=== PATIENT | female | born 1960 | race Caucasian/White ===

== ENCOUNTER → 2020-05-04 07:31 | Outpatient (CLI) | payer BC, SELFPAY ==
--- NOTE | ~2020-05-04 | MR_ITS ---
EXAMINATION: MR cervical spine wo con EXAM DATE: 05/04/2020 08:34 INDICATION: Paresthesia of the skin. TECHNIQUE: Multi-sequential, multiplanar MR images of the cervical spine were obtained without contra st. Axial T2, axial T2 MERGE sequence. Sagittal T1, T2, T2 fat saturation images also obtained. Th ere is no prior study for comparison. FINDINGS: There is moderate to severe loss of the disc height at C4-5 with only mild bony productive changes, moderate loss at the 2 levels below. There is 2 mm retrolisthesis of C4 on C5. The spinal c ord signal intensity and intrinsic morphology is normal. Cervicomedullary junction is normal in appea irma. There are no suspicious marrow signal abnormalities. Paraspinal soft tissue is unremarkable. Level by level evaluation: C2-C3: Disc does not extend beyond the endplate margin. Uncovertebral joint arthropathy: Mild right. Facet joint arthropathy: Mild right. Neural foraminal stenosis: Mild right. Central canal stenosis: No stenosis. C3-C4: There is a minimal diffuse disc bulge. Uncovertebral joint arthropathy: Mild to moderate left, mild right. Facet joint arthropathy: Moderate to severe left, mild to moderate right. Neural foraminal stenosis: Moderate left, mild to moderate right. Central canal stenosis: No stenosis. C4-C5: There is a mild diffuse disc bulge. Uncovertebral joint arthropathy: Moderate bilateral. Facet joint arthropathy: Mild to moderate bilateral. Neural foraminal stenosis: Severe left, moderate to severe right. Central canal stenosis: Mild. C5-C6: There is a mild diffuse disc bulge. Uncovertebral joint arthropathy: Moderate right, mild to moderate left. Facet joint arthropathy: Mild to moderate left, mild right. Neural foraminal stenosis: Moderate to severe bilateral, right greater than left. Central canal stenosis: Mild. C6-C7: There is a mild diffuse disc bulge. Uncovertebral joint arthropathy: Moderate to severe right, moderate left. Facet joint arthropathy: Mild bilateral. Neural foraminal stenosis: Moderate right, mild to moderate left. Central canal stenosis: Mild. C7-T1: Disc does not extend beyond the endplate margin. Uncovertebral joint arthropathy: Moderate left, mild to moderate right. Facet joint arthropathy: None. Neural foraminal stenosis: No stenosis. Central canal stenosis: No stenosis. IMPRESSION: 1. Significant mid cervical neural foraminal stenosis. Reviewed, dictated and finalized at location A.
== END ==
PROVIDERS: PCP Family Medicine; Visit Provider Family Medicine
DX: M47.813 Spondylosis without myelopathy or radiculopathy, cervicothoracic region (principal); M48.03 Spinal stenosis, cervicothoracic region; R20.2 Paresthesia of skin; N32.81 Overactive bladder
CPT/HCPCS: 72141

== ENCOUNTER → 2020-05-10 15:37 | Outpatient (CLI) | payer BC, SELFPAY ==
--- NOTE | ~2020-05-10 | US_ITS ---
US pelvic limited 05/10/2020 15:55 Indication: Overactive bladder. Post void residual. Urgency and frequency. Procedure: High-resolution pelvic ultrasound Comparison: No prior studies for comparison. Findings: Bladder wall is normal without focal bladder wall thickening or mass. Prevoid volume is 391 cc. Postvoid volume is 72 cc. Impression: 1: Post void residual measures 72 cc. Reviewed, dictated and finalized at location B. Impression: 1: Post void residual measures 72 cc.
== END ==
PROVIDERS: Visit Provider Family Medicine
DX: N32.81 Overactive bladder (principal)
CPT/HCPCS: 76857

== ENCOUNTER → 2020-05-28 08:35 | Outpatient (CLI) | payer BC, SELFPAY ==
--- NOTE | ~2020-05-28 | XR_ITS ---
EXAMINATION: XR chest 2V DATE: 05/28/2020 09:28 INDICATION: Shortness of breath TECHNIQUE: PA and lateral views of the chest are obtained. COMPARISON: None available FINDINGS: The lungs are free of acute opacities. There is no pleural effusion or pneumothorax. The ca rdiomediastinal silhouette is normal. The visualized bones and soft tissues are unremarkable. Bilater al breast implants are noted. IMPRESSION: 1. No acute cardiopulmonary abnormality. Reviewed, dictated and finalized at location B.
--- NOTE | ~2020-05-28 | MR_ITS ---
EXAMINATION: MR lumbar spine wo con DATE: 05/28/2020 09:11 INDICATION: Low back pain. TECHNIQUE: Magnetic resonance imaging (MRI) of the lumbar spine was performed without intravenous con trast. Sequences included sagittal T2-weighted FSE, sagittal T2-weighted FS FSE, sagittal T1-weighted FSE, and axial T2-weighted FSE. COMPARISON: None FINDINGS: There is 6 degrees levocurvature of lumbar spine. There is 3 mm anterolisthesis of L4 on L5 . There is mild chronic height loss of L5 vertebral body. There is mildly decreased disc height at L1 -L2 and L5-S1 with endplate remodeling. The distal spinal cord signal intensity is normal. The conus medullaris is at L1. The following disc levels are specifically discussed: L1-L2: There is a small left central extrusion with 10 mm superior extension. There is mild bilateral facet joint osteoarthritis. There is no neural foraminal stenosis. There is mild central canal steno sis. L2-L3: The disc does not extend beyond the endplate margin. There is no facet joint osteoarthritis. T here is no neural foraminal stenosis. There is no central canal stenosis. L3-L4: There is a left foraminal protrusion. There is moderate bilateral facet joint osteoarthritis. There is mild left neural foraminal stenosis. There is no central canal stenosis. L4-L5: The disc is bulging and has an annular fissure. There is severe bilateral facet joint osteoart hritis. There is mild bilateral neural foraminal stenosis. There is mild central canal stenosis. L5-S1: The disc is bulging. There is mild right and severe left facet joint osteoarthritis. There is mild left neural foraminal stenosis. There is mild central canal stenosis. IMPRESSION: 1. Mild lumbar spondylosis. Reviewed, dictated and finalized at location A. IMPRESSION: 1. Mild lumbar spondylosis.
== END ==
PROVIDERS: PCP Family Medicine; Visit Provider Family Medicine
DX: R06.09 Other forms of dyspnea (principal); M47.896 Other spondylosis, lumbar region
CPT/HCPCS: 71046; 72148

== ENCOUNTER → 2020-06-28 15:45 | Outpatient (CLI) | payer BC, SELFPAY ==
--- NOTE | ~2020-06-28 | MM_ITS ---
EXAMINATION: MM scrn juan carlos implant BI w serg HISTORY: Screening mammogram TECHNIQUE: Craniocaudal and mediolateral oblique 3-D tomosynthesis images with implant displacement a nd synthetic 2-D images were generated. Craniocaudal and mediolateral oblique views of the breasts wi thout implant displacement were obtained using full field digital mammography. CAD analysis was submi tted and interpreted. COMPARISON: No prior mammogram is available for comparison at this institution. BREAST PARENCHYMAL COMPOSITION: There are scattered areas of fibroglandular density. FINDINGS: There are bilateral subpectoral silicone implants. There is no evidence of suspicious mass, calcification, or architectural distortion to suggest malignancy in either breast. There has been no suspicious interval change. IMPRESSION: 1. No mammographic evidence of malignancy. 2. Recommend routine screening mammography in one year. BI-RADS Category 1: Negative Reviewed, dictated and finalized at location A.
== END ==
PROVIDERS: PCP Family Medicine; Visit Provider Family Medicine
DX: Z12.31 Encounter for screening mammogram for malignant neoplasm of breast (principal)
CPT/HCPCS: 77063; 77067

== ENCOUNTER → 2020-08-17 01:55 | Outpatient (CLI) | payer OTHER, SELFPAY ==
[2020-08-17 16:16] LABS: SARS-CoV-2 RNA PCR Negative
== END ==
PROVIDERS: PCP Family Medicine; Visit Provider Surgery Plastic and Reconstructive Surgery
DX: Z01.812 Encounter for preprocedural laboratory examination (principal); Z20.822 Contact with and (suspected) exposure to COVID-19
CPT/HCPCS: C9803; U0003; U0005

== ENCOUNTER → 2020-08-27 10:33 | Outpatient (CLI) | payer BC, SELFPAY ==
--- NOTE | ~2020-08-27 | MR_ITS ---
EXAMINATION: MR brain/brain stem wo/w con DATE: 08/27/2020 11:46 INDICATION: Left-sided facial numbness. Left-sided tinnitus. TECHNIQUE: Magnetic resonance imaging (MRI) of the brain and brainstem was performed without and with 13 mL MultiHance intravenous contrast. Sequences included sagittal and axial T1-weighted FSE, axial diffusion-weighted FS EPI, axial T2*-weighted GRE, axial T2-weighted FLAIR Propeller, and axial T2-we ighted Propeller. Postcontrast sequences included axial and coronal T1-weighted FSE. Apparent diffusi on coefficient (ADC) maps were created. COMPARISON: None. FINDINGS: There are scattered areas of nonspecific increased T2-weighted signal intensity in the cere bral white matter, which is within normal limits for the patient's age. There is no intracranial hemo rrhage, acute infarction, or abnormal intracranial mass lesion. The ventricles are normal in size. Th e mastoid air cells are normal. The paranasal sinuses are clear. The orbits are normal. IMPRESSION: 1. Normal aging brain. Reviewed, dictated and finalized at location A. IMPRESSION: 1. Normal aging brain.
[2020-08-27 11:29] LABS: Estimated Glomerular Filt Rate > 60
== END ==
PROVIDERS: PCP Family Medicine; Visit Provider Family Medicine
DX: R20.2 Paresthesia of skin (principal); G50.9 Disorder of trigeminal nerve, unspecified
CPT/HCPCS: 70553; A9577

== ENCOUNTER 2020-09-10 08:19 | Day surgery (SDC) | payer OTHER, SELFPAY ==
[2020-08-04 10:07] VITALS: BMI 23.3
--- NOTE | 2020-08-19 09:26 | WPDANESEPPF ---
Anes - Initial Pre Proc Eval Procedure: Operation Date: 08/20/20 10:30 Proposed Procedures p Bilateral Breast Implant Removal with Capsulectomy - Shree Figueredo MD Date/Time: 08/19/20 09:26 Surgeon: Shree Figueredo MD Pre Op Diagnosis: Breast Implant Rupture Patient Data Age: 59 Gender: F Height: 1.68 m Weight: 65.5 kg Allergies Allergy/AdvReac Type Severity Reaction Status Date / Time morphine Allergy Intermediate Rash Verified 08/04/20 09:42 Home Medications Medication Instructions Recorded Confirmed Type alprazolam [Xanax] 0.25 mg PO PRN PRN 07/05/20 08/04/20 History cholecalciferol (vitamin D3) 10 10 mcg PO DAILY 07/05/20 08/04/20 History mcg (400 unit) capsule meloxicam 15 mg tablet 15 mg PO DAILY 07/05/20 08/04/20 History pantoprazole 20 mg tablet,delayed 20 mg PO QAM 07/05/20 08/04/20 History release solifenacin 5 mg tablet 5 mg PO DAILY 07/05/20 08/04/20 History cyclobenzaprine 10 mg PO TID 08/04/20 08/04/20 History docusate sodium 100 mg capsule 100 mg PO DAILY #14 cap 08/04/20 Rx ondansetron HCl 4 mg tablet 4 mg PO Q8H #21 tablet 08/04/20 Rx PMFSH Past Medical History Medical History (Updated 08/19/20 @ 09:27 by Jose De Jesus Ruby DO) Anxiety Cervical spinal stenosis Surgical History Surgical History History of History of hysterectomy Family History Family History Other Diabetes mellitus Social History Social History Smoking status: Former smoker Alcohol intake: never Gender identity (if verbalized by the patient): Female Spiritual care concerns: Yes Anes - Eval Final PreProcedure Day of Procedure 08/19/20 09:26 Patient weight: normal Heart: regular rate and rhythm Lungs: clear to auscultation and normal air movement Airway: Mallampati scale class II Neurological: alert and oriented Last oral intake: >/= 8 hours ASA classification: II Emergent: no Anesthetic plan: proceed Anesthesia type and monitoring: general LMA and standard monitoring Informed Consent: The patient's anesthetic plan and its attendant risks and benefits were discussed with the patient/family/POA. Questions were solicited and answers provided to the satisfaction of the patient/family/POA.
[2020-09-10] VITALS (7 sets, daily range): BP systolic 105–130; BP diastolic 59–74; PULSE 57–78; RESP 10–18; TEMP 36.5–36.6; O2SAT 93–100; BMI 22.4
[2020-09-10] MEDS: LACTATED RINGERS 1,000 ML 30 ML IV CONT ×2 (09:00→10:49)
--- NOTE | 2020-09-10 09:13 | WPDHPUPDATE1 ---
History and Physical Update Update Date/Time: 09/10/20 09:13 History and Physical has been reviewed, including an updated exam of the patient. There are NO changes in the patient's condition. Risks, benefits, and alternatives have been discussed and questions answered. Patient agrees to proceed with procedure.
--- NOTE | 2020-09-10 09:13 | WPDANESEPPF ---
Anes - Initial Pre Proc Eval Procedure: Operation Date: 09/10/20 10:00 Proposed Procedures p Bilateral Breast Implant Removal with Capsulectomy - Shree Figueredo MD Date/Time: 09/10/20 09:13 Surgeon: Shree Figueredo MD Pre Op Diagnosis: Breast Implant Rupture Patient Data Age: 59 Gender: F Height: 1.68 m Weight: 63 kg Last Vital Signs Temp 36.6 C 09/10/20 08:45 Pulse 74 09/10/20 08:45 Resp 18 09/10/20 08:45 BP 122/74 09/10/20 08:45 Pulse Ox 100 09/10/20 08:45 Allergies Allergy/AdvReac Type Severity Reaction Status Date / Time morphine Allergy Intermediate Rash Verified 09/10/20 08:46 Home Medications Medication Instructions Recorded Confirmed Type alprazolam [Xanax] 0.25 mg PO PRN PRN 07/05/20 09/10/20 History cholecalciferol (vitamin D3) 10 10 mcg PO DAILY 07/05/20 09/10/20 History mcg (400 unit) capsule meloxicam 15 mg tablet 15 mg PO DAILY 07/05/20 09/10/20 History pantoprazole 20 mg tablet,delayed 20 mg PO QAM 07/05/20 09/10/20 History release solifenacin 5 mg tablet 5 mg PO DAILY 07/05/20 09/10/20 History cyclobenzaprine 10 mg PO TID 08/04/20 09/10/20 History docusate sodium 100 mg capsule 100 mg PO DAILY #14 cap 08/04/20 09/10/20 Rx ondansetron HCl 4 mg tablet 4 mg PO Q8H #21 tablet 08/04/20 09/10/20 Rx hydrocodone 5 mg-acetaminophen 325 1 tablet PO Q6H PRN #15 tablet 09/09/20 09/10/20 Rx mg tablet Patient hx anesthesia problems: none Family hx anesthesia problems: none PMFSH Past Medical History Medical History Anxiety Cervical spinal stenosis Surgical History Surgical History History of History of hysterectomy Family History Family History Other Diabetes mellitus Social History Social History Smoking status: Former smoker Alcohol intake: never Living arrangements: with family Gender identity (if verbalized by the patient): Female Spiritual care concerns: Yes Anes - Eval Final PreProcedure Day of Procedure 09/10/20 09:13 Patient weight: normal Heart: regular rate and rhythm Lungs: clear to auscultation Airway: Mallampati scale class II Neurological: alert and oriented Last oral intake: >/= 8 hours ASA classification: II Emergent: no Anesthetic plan: proceed Anesthesia type and monitoring: general LMA and standard monitoring Informed Consent: The patient's anesthetic plan and its attendant risks and benefits were discussed with the patient/family/POA. Questions were solicited and answers provided to the satisfaction of the patient/family/POA.
[2020-09-10] MEDS: MIDAZOLAM HCL (*CRX) 2 MG/2 ML VIAL IV PUSH (09:25)
[2020-09-10] MEDS: SCOPOLAMINE 1.5 MG PATCH TRANSDERM (09:25)
--- NOTE | 2020-09-10 09:25 | W.PM.PROC2 ---
Procedure Note - Detailed Date of Procedure 09/10/20 Pre-op Diagnosis Breast Implant Rupture Post-op Diagnosis same Procedure Performed Bilateral implant removal with capsulectomy Surgeon Shree Figueredo MD Anesthesia general Findings Bilateral implants intact. Left was flipped (patch superficial). Description of Procedure Preoperatively the risks, benefits, alternatives were discussed in extensive detail. I want her and her family to be very realistic about the risks involved as well as expectations. Made sure answered all of their questions are satisfaction. They voiced understanding. They would like proceed. Taken to the operating room placed supine on the operating room table. Anesthesia provided by anesthesiology. Prepped and draped in a standard sterile fashion. 1% lidocaine and 0.25% Marcaine with epinephrine was used to provide a field block. Fifteen blade used to excise the previous scar. I continued dissection to the capsules identified and removed the majority of the capsule and I was able to safely removed. These were smooth implants and I did not send the capsule. I had a conversation about the patient about sending the capsule and explained the risks of not sending. After hearing all the risks, benefits, alternatives they decline sending the capsule. I copiously irrigated with more than 3 L of saline containing solution on TUR tubing. Verified strict hemostasis. Fifteen Christian drains were placed bilaterally and sutured into place with 3-0 nylon. I closed using 2-0 Vicryl followed by 3-0 Monocryl in a running subcuticular 4-0 Monocryl and tissue glue. Surgical bra was placed. Patient was woken taken to PACU without difficulty. All instrument sponge counts were correct at the end of the case. Estimated Blood Loss 10 Drains Yes (Bilateral christian) Packing No Pathology none sent Complications No immediate complications Condition stable Disposition PACU
[2020-09-10] MEDS: ceFAZolin SODIUM 2 GM/20 ML SW SYRINGE IV PUSH (09:46)
[2020-09-10] MEDS: BUPIVACAINE HCL 0.25% 50 ML VIAL 40 ML INFILTRATE (10:17)
[2020-09-10] MEDS: LIDO 1%/EPINEPHRINE 1:100,000 20 ML VIAL 30 ML INFILTRATE (10:18)
[2020-09-10] MEDS: HYDROmorphone HCL INJ (*CRX) 1 MG/ML SYR IV PUSH (11:14)
--- NOTE | 2020-09-10 11:45 | WPDANESPN ---
Anes - Prog Note Post-Op Date/Time: 09/10/20 11:45 Cardiovascular status: normal Respiratory status: normal Airway patency: baseline Mental status: baseline Post-Op hydration status: normal Vital Signs: Last Vital Signs Temp 36.5 C 09/10/20 10:49 Pulse 61 09/10/20 11:34 Resp 11 L 09/10/20 11:34 BP 107/59 L 09/10/20 11:34 Pulse Ox 93 09/10/20 11:34 Pain Score (VAS): 5 I/O: Intake & Output 09/09/20 09/10/20 09/10/20 23:59 07:59 15:59 Intake Total 0 Balance 0 Post-procedural complaints: none Patient Feedback: Patient satisfied with anesthetic care.
[2020-09-10] MEDS: oxyCODONE HCL (*CRX) 5 MG TAB IR PO (12:07)
== END 2020-09-10 12:51 | disposition home or self-care (01) ==
PROVIDERS: PCP Family Medicine; Visit Provider Surgery Plastic and Reconstructive Surgery
PROC: 0HPT0JZ Removal of Synthetic Substitute from Right Breast, Open Approach (ICD-10-PCS; CPT 19371; principal; 2020-09-10 10:00)
DX: T85.49XA Other mechanical complication of breast prosthesis and implant, initial encounter (principal)
CPT/HCPCS: 19371

== ENCOUNTER → 2020-09-21 10:40 | Outpatient (CLI) | payer BC, SELFPAY ==
--- NOTE | ~2020-09-21 | MR_ITS ---
EXAMINATION: MR brain IAC wo/w con DATE: 09/21/2020 11:46 INDICATION: Left facial numbness. Left sided tinnitus. TECHNIQUE: Magnetic resonance imaging (MRI) of the brain, brainstem, and internal auditory canals was performed without and with 13 mm MultiHance intravenous contrast. Sequences axial T2*-weighted GRE, small ngwvi-qh-[id number] coronal FIESTA, small cnzpm-bw-jhvv coronal T1-weighted FSE, and small field-of-v iew axial T1-weighted SPGR. Postcontrast sequences included axial T1-weighted FSE, small dzzla-yl-sbl w coronal T1-weighted FSE, and small tbruo-vf-[id number] axial T1-weighted SPGR. COMPARISON: Brain MRI 08/27/2020 FINDINGS: There is no intracranial hemorrhage or abnormal mass lesion. The ventricles are normal in s ize. The internal auditory canals and inner and middle ears are normal. The 7th and 8th cranial nerve s are normal. The trigeminal nerves are normal. No vascular loop compression. The orbits are normal. There is mild mucosal thickening in sphenoid sinus. IMPRESSION: 1. No etiology for the patient's symptoms. Reviewed, dictated and finalized at location A.
== END ==
PROVIDERS: PCP Family Medicine; Visit Provider Family Medicine
DX: R20.2 Paresthesia of skin (principal); G50.9 Disorder of trigeminal nerve, unspecified
CPT/HCPCS: 99199; A9577

== ENCOUNTER 2020-12-17 00:12 | Day surgery (SDC) | payer BC, SELFPAY ==
[2020-11-03 14:46] VITALS: BMI 21.7
[2020-12-08 11:55] VITALS: BMI 21.7
--- NOTE | 2020-12-16 12:34 | PM.HPGS ---
History of Present Illness History of Present Illness Consent: Risks, benefits, and alternatives have been discussed and questions answered. Patient agrees to proceed with procedure. Chief complaint: neoplasm screening Narrative: Adriana Gustafson is a 60 year old female referred for colon cancer screening. Review of Systems Review of Systems: All systems reviewed & are unremarkable except as noted in HPI and below PMFSH Past Medical History Medical History Anxiety Cervical spinal stenosis Surgical History Surgical History History of History of hysterectomy Family History Family History Other Diabetes mellitus Social History Social History Smoking packs per day: 1 Smoking cigarettes per day: 20.0 Years smoked: 20 Smoking pack-years: 20.00 Smoking status: Never smoker Tobacco type: cigarettes Alcohol intake: never Substance use: never Living arrangements: with family Gender identity (if verbalized by the patient): Female Spiritual care concerns: No Meds Home Medications and Allergies Home Medications Medication Instructions Recorded Confirmed Type alprazolam [Xanax] 0.25 mg PO PRN PRN 07/05/20 12/17/20 History meloxicam 15 mg tablet 15 mg PO DAILY 07/05/20 12/17/20 History pantoprazole 20 mg tablet,delayed 20 mg PO QAM 07/05/20 12/17/20 History release solifenacin 5 mg tablet 5 mg PO DAILY 07/05/20 12/17/20 History cyclobenzaprine 10 mg PO TID PRN 08/04/20 12/17/20 History Allergies Allergy/AdvReac Type Severity Reaction Status Date / Time morphine Allergy Severe Rash Verified 12/17/20 09:06 Exam Resp: Auscultation: clear to auscultation bilaterally Cardio: Rate: regular rate Rhythm: regular rhythm GI: GI Palp: Yes Soft to palpation and No Tenderness to palpation present (GI) Assessment and Plan Assessment and plan (1) Colon cancer screening: Code(s): Z12.11 - Encounter for screening for malignant neoplasm of colon Status: Acute Assessment and Plan: Colonoscopy with possible biopsy or polypectomy or cautery or injection of substances.
[2020-12-17 09:10] VITALS: BP 103/77; PULSE 84; RESP 16; TEMP 35.8; O2SAT 100
[2020-12-17] MEDS: LACTATED RINGERS 1,000 ML 150 ML IV CONT (09:18)
--- NOTE | 2020-12-17 10:06 | WPDANESEFPP ---
Anes - Eval Final PreProcedure Day of Procedure 12/17/20 10:06 Patient weight: normal Heart: regular rate and rhythm Lungs: clear to auscultation Airway: Mallampati scale class II Neurological: alert and oriented Last oral intake: >/= 8 hours ASA classification: II Emergent: no Anesthetic plan: proceed Anesthesia type and monitoring: general GIVS and standard monitoring Results Review: All pre-operative results and documents have been reviewed as part of the pre-operative evaluation. Informed Consent: The patient's anesthetic plan and its attendant risks and benefits were discussed with the patient/family/POA. Questions were solicited and answers provided to the satisfaction of the patient/family/POA.
[2020-12-17] MEDS: SIMETHICONE ORAL SUSPENSION 20 MG/0.3 ML 30 ML BOTTLE 0.6 ML IRRIGATION (10:14)
[2020-12-17 10:21] VITALS: BP 106/56; PULSE 81; RESP 15; O2SAT 100
[2020-12-17 10:31] VITALS: BP 113/59; PULSE 73; RESP 19; O2SAT 97
[2020-12-17 10:41] VITALS: BP 105/47; PULSE 77; RESP 20; O2SAT 100
== END 2020-12-17 10:46 | disposition home or self-care (01) ==
PROVIDERS: PCP Family Medicine; Visit Provider Internal Medicine Gastroenterology
PROC: 0DJD8ZZ Inspection of Lower Intestinal Tract, Via Natural or Artificial Opening Endoscopic (ICD-10-PCS; CPT 45378; principal; 2020-12-17 10:00)
DX: Z12.11 Encounter for screening for malignant neoplasm of colon (principal); K64.8 Other hemorrhoids; F41.9 Anxiety disorder, unspecified
CPT/HCPCS: 45378; J2001; J2704; J7120

== ENCOUNTER → 2021-04-04 07:25 | Outpatient (REF) | payer BC, SELFPAY | LOC: ANHLAB 07:25 | PROVIDERS: PCP Family Medicine; Visit Provider Nurse Practitioner | DX: C44.629 Squamous cell carcinoma of skin of left upper limb, including shoulder (principal) | CPT/HCPCS: 88305; 88331 ==

== ENCOUNTER → 2021-11-07 12:56 | Outpatient (CLI) | payer BC, SELFPAY ==
--- NOTE | ~2021-11-07 | MM_ITS ---
EXAMINATION: MM screening juan carlos BI w serg HISTORY: Screening mammogram TECHNIQUE: Craniocaudal and mediolateral oblique 3-D tomosynthesis images were obtained and synthetic 2-D images were generated. CAD analysis was submitted and interpreted. COMPARISON: 06/28/2020 bilateral implant screening mammogram BREAST PARENCHYMAL COMPOSITION: There are scattered areas of fibroglandular density. FINDINGS: Status post removal of bilateral implant since 06/28/2020 There is no evidence of suspicious mass, calcification, or architectural distortion to suggest malignancy in either breast. There has b een no suspicious interval change. IMPRESSION: 1. No mammographic evidence of malignancy. 2. Recommend routine screening mammography in one year. BI-RADS Category 1: Negative Reviewed, dictated and finalized at location A.
== END ==
PROVIDERS: PCP Family Medicine; Visit Provider Family Medicine
DX: Z12.31 Encounter for screening mammogram for malignant neoplasm of breast (principal)
CPT/HCPCS: 77063; 77067

== ENCOUNTER → 2022-08-30 08:42 | Outpatient (CLI) | payer BC, SELFPAY ==
--- NOTE | ~2022-08-30 | MR_ITS ---
MRI of the cervical spine Clinical History: Spinal stenosis Technique: Axial T2-weighted and gradient images, and sagittal T1-weighted, T2-weighted, and STIR bairon ges were acquired. Findings: There is minimal grade 1 retrolisthesis of C4 over C5. No fracture seen. No suspicious bone marrow signal abnormality seen. At C2-C3, there is no disc bulge or herniation. No spinal canal stenosis, cord compression, or neural foraminal narrowing. At C3-C4, there is minimal disc osteophyte complex. No spinal canal stenosis or cord compression. Edmund ral foramina are probably preserved, despite mild left facet arthropathy. At C4-C5, there is severe degenerative disc narrowing. Disc osteophyte complex results in mild canal stenosis and mild cord compression. There is bilateral neural foraminal narrowing, left worse than ri ght. At C5-C6, there is disc osteophyte complex, with mild canal stenosis but no dayana cord compression. T here is bilateral neural foraminal narrowing. At C6-C7, there is mild disc osteophyte complex with severe right neural foraminal narrowing. No left neural foraminal narrowing. No central canal stenosis or cord compression evident. Paravertebral soft tissues are unremarkable. No abnormal signal seen in the spinal cord itself. Impression: Severe degenerative spondylosis at C4-C5, as detailed above, with mild cord compression probably pres ent. Additional neural foraminal narrowing at C5-C6 and C6-C7, as detailed above. Minimal grade 1 retrolisthesis of C4 over C5. Reviewed, dictated and finalized at [facility]. Impression: Severe degenerative spondylosis at C4-C5, as detailed above, with mild cord com pression probably present. Additional neural foraminal narrowing at C5-C6 and C6-C7, as detailed above. Minimal grade 1 retrolisthesis of C4 over C5.
== END ==
PROVIDERS: PCP Family Medicine; Visit Provider Family Medicine
DX: E55.9 Vitamin D deficiency, unspecified (principal); E53.8 Deficiency of other specified B group vitamins; F41.1 Generalized anxiety disorder; M48.02 Spinal stenosis, cervical region; M50.321 Other cervical disc degeneration at C4-C5 level
CPT/HCPCS: 72141

== ENCOUNTER → 2022-10-10 08:27 | Outpatient (CLI) | payer BC, SELFPAY ==
--- NOTE | ~2022-10-10 | MR_ITS ---
MRI of the lumbar spine Clinical History: Back pain Technique: Axial T2-weighted images, and sagittal T1-weighted, T2-weighted, and T2 fat-sat images wer e acquired. Findings: There is no fracture or subluxation of the lumbar spine. Vertebral bodies maintain normal h eight and alignment. No suspicious bone marrow signal reality seen. At L1-L2, there is no disc bulge or herniation. There is minimal facet joint arthropathy. No central canal stenosis or neural foraminal narrowing. At L2-L3, there is no disc bulge or herniation. There is mild to moderate facet arthropathy. No centr al canal stenosis or neural foraminal narrowing. At L3-L4, there is no disc bulge or herniation. There is moderate facet arthropathy. No central canal stenosis or neural foraminal narrowing. At L4-L5, there is minimal disc bulge with moderate to severe facet arthropathy. No central canal regis nosis or neural foraminal narrowing. At L5-S1, there is no disc bulge or herniation. There is moderate facet arthropathy. No central canal stenosis. There is mild to moderate left neural foraminal narrowing. Paravertebral soft tissues are unremarkable. Impression: Mild to moderate left neural foraminal narrowing at L5-S1. Additional mild degenerative changes in the lumbar spine, as above. Reviewed, dictated and finalized at [facility]. Impression: Mild to moderate left neural foraminal narrowing at L5-S1. Additional mild degenerative changes in the lumbar spine, as above.
== END ==
PROVIDERS: PCP Family Medicine; Visit Provider Family Medicine
DX: M48.02 Spinal stenosis, cervical region (principal); M54.9 Dorsalgia, unspecified; M48.07 Spinal stenosis, lumbosacral region
CPT/HCPCS: 72148

== ENCOUNTER → 2022-10-26 09:53 | Outpatient (CLI) | payer BC, SELFPAY ==
--- NOTE | ~2022-10-26 | XR_ITS ---
Left ankle Technique: AP, oblique, and lateral views were obtained. Clinical History: Pain Findings: No acute fracture or dislocation is seen. Possible chronic fracture fragment versus heterot opic ossification at the tip of the medial malleolus. Osseous alignment is anatomic. Ankle mortise an d other visualized joint spaces are preserved. Soft tissues are otherwise unremarkable. Impression: No acute abnormality. Possible chronic fracture fragment versus heterotopic ossification at the tip of the medial malleolus . Reviewed, dictated and finalized at location M. Impression: No acute abnormality. Possible chronic fracture fragment versus heterotopic ossification at the tip o f the medial malleolus.
== END ==
PROVIDERS: PCP Family Medicine; Visit Provider Family Medicine
DX: M25.572 Pain in left ankle and joints of left foot (principal)
CPT/HCPCS: 73610

== ENCOUNTER → 2022-11-14 08:29 | Outpatient (CLI) | payer BC, SELFPAY ==
--- NOTE | ~2022-11-14 | MR_ITS ---
MRI of the left ankle Clinical history: Pain Technique: Coronal proton-density and proton-density fat-sat images, axial proton-density and proton- density fat-sat images, and sagittal proton-density and proton-density fat-sat images were acquired. Findings: Syndesmotic ligaments are intact. Anterior and posterior talofibular ligaments, and calcane ofibular ligament are intact. Deltoid ligament is intact. Medial flexor tendons, peroneal tendons, anterior extensor tendons, and Achilles tendon are intact. There is no osteochondral lesion of the talar dome. No suspicious bone marrow signal abnormality evid ent. Joint spaces are relatively well-preserved. Small subtalar joint effusion present. Probable small ganglion cyst in the region of the sinus Tarsi. Plantar fascia is intact. Impression: Probable small ganglion cyst and mild edema in the region of the sinus Tarsi. Correlate for sinus Tar si syndrome. No other significant findings. Reviewed, dictated and finalized at [facility]. Impression: Probable small ganglion cyst and mild edema in the region of the sinus Tarsi. C orrelate for sinus Tarsi syndrome. No other significant findings.
== END ==
PROVIDERS: PCP Orthopaedic Surgery; Visit Provider Family Medicine
DX: S82.55XA Nondisplaced fracture of medial malleolus of left tibia, initial encounter for closed fracture (principal); X58.XXXA Exposure to other specified factors, initial encounter
CPT/HCPCS: 73721

== ENCOUNTER → 2022-12-21 13:09 | Outpatient (CLI) | payer BC, SELFPAY ==
--- NOTE | ~2022-12-21 | MM_ITS ---
EXAMINATION: MM screening juan carlos BI w serg HISTORY: Screening TECHNIQUE: Craniocaudal and mediolateral oblique 3-D tomosynthesis images were obtained and synthetic 2-D images were generated. CAD analysis was submitted and interpreted. COMPARISON: Comparison to multiple prior studies sequentially, with oldest reviewed study dated 06/28. BREAST PARENCHYMAL COMPOSITION: There are scattered areas of fibroglandular density. FINDINGS: There is no evidence of suspicious mass, calcification, or architectural distortion to sugg est malignancy in either breast. There has been no suspicious interval change. IMPRESSION: 1. No mammographic evidence of malignancy. 2. Recommend routine screening mammography in one year. BI-RADS Category 1: Negative Reviewed, dictated and finalized at location A. APPLICATION DEVELOPMENT MANAGER
== END ==
PROVIDERS: PCP Family Medicine; Visit Provider Advanced Practice Midwife
DX: Z12.31 Encounter for screening mammogram for malignant neoplasm of breast (principal)
CPT/HCPCS: 77063; 77067

== ENCOUNTER 2023-01-26 14:19 | Outpatient (CLI) | payer BC, SELFPAY ==
--- NOTE | ~2023-01-26 | XR_ITS ---
EXAMINATION: XR lumbar spine 2-3V, XR sacroiliac joints min 3V DATE: 01/26/2023 15:10 INDICATION: Lumbago with sciatica and myalgia. TECHNIQUE: 1. Anteroposterior and lateral views of the lumbar spine, and cone-down lateral view of the lumbosacr al junction were obtained. 2. AP and left and right oblique views of the lateral sacral iliac joints were obtained. COMPARISON: Lumbar spine MR dated 10/10/2022 FINDINGS: 4 degrees lumbar levocurvature. One-2 mm anterolisthesis L4 on L5. Vertebral body heights are normal. Mild disc height loss at L4-L5. Minimal degenerative endplate changes with relatively preserved disc heights at T12-L1 and L1-L2. Moderate to severe facet osteoarthritis bilaterally at L4-L5 and L5-S1. Mild bilateral sacroiliac osteoarthritis with prominent anterior osteophytes at the inferior right s acrum at joint. No erosions to suggest inflammatory sacroiliitis. Is also mild bilateral hip osteoart hritis. A few phleboliths in the pelvis. IMPRESSION: 1. Minimal lumbar levocurvature with mild spondylosis. 2. Mild bilateral sacroiliac osteoarthritis. Reviewed, dictated and finalized at location A. RVISOR CELL MAINTENANCE IMPRESSION: 1. Minimal lumbar levocurvature with mild spondylosis. 2. Mild bilateral sacroiliac osteoarthritis.
--- NOTE | ~2023-01-26 | XR_ITS ---
EXAMINATION: XR chest 2V DATE: 01/26/2023 15:10 INDICATION: Myalgia TECHNIQUE: PA and lateral views of the chest are obtained. COMPARISON: 05/28/2020 FINDINGS: The lungs are free of acute opacities. No pleural effusion or pneumothorax. The cardiomedia stinal silhouette is normal. There is mild thoracic spondylosis. Breast implants. IMPRESSION: 1. No acute cardiopulmonary abnormality. Reviewed, dictated and finalized at location B. KEEPER
--- NOTE | ~2023-01-26 | XR_ITS ---
EXAMINATION: XR foot RT min 3V, XR foot LT min 3V DATE: 01/26/2023 15:10 INDICATION: Bilateral foot pain and arthritis TECHNIQUE: 1. Dorsoplantar, two oblique and lateral views of the left foot were obtained. 2. Dorsoplantar, two oblique and lateral views of the right foot were obtained. COMPARISON: None. FINDINGS: Normal alignment at the bilateral feet. No fracture. Relatively symmetric pattern of mild polyarticul ar osteoarthritis at multiple bilateral tarsal metatarsal, metatarsophalangeal and interphalangeal shilo ints. No erosions to suggest inflammatory arthritis. Soft tissues are unremarkable. Small right Achil les calcaneal spur and tiny left plantar calcaneal spur. IMPRESSION: 1. 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 Reviewed, dictated and finalized at location A. ITE COORDINATOR IMPRESSION: 1. 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
--- NOTE | ~2023-01-26 | XR_ITS ---
EXAMINATION: HAND-JEFF ARTHRITIS 3+VIEWS DATE: 01/26/2023 15:10 INDICATION: Bilateral hand pain and arthritis TECHNIQUE: Posteroanterior, lateral, and oblique views of the left and of the right hands as well as a ballcatchers view of both hands were obtained. COMPARISON: None. FINDINGS: Bone alignment is normal at the bilateral hands and wrists. No fracture. There is relatively symmetri c mild polyarticular osteoarthritis at the bilateral midcarpal, triscaphe, first carpometacarpal and multiple primarily distal interphalangeal joints. No erosions to suggest inflammatory arthritis. Soft tissues are unremarkable. IMPRESSION: 1. Relatively symmetric, typical pattern of mild polyarticular osteoarthritis at the bilateral hands. Reviewed, dictated and finalized at location A. NDER HEAD ASSEMBLER IMPRESSION: 1. Relatively symmetric, typical pattern of mild polyarticular osteoarthritis a t the bilateral hands.
== END 2023-01-26 14:20 ==
LOC: MICIMG 14:22
PROVIDERS: PCP Family Medicine; Visit Provider Internal Medicine
DX: M54.40 Lumbago with sciatica, unspecified side (principal); M43.06 Spondylolysis, lumbar region; M43.8X6 Other specified deforming dorsopathies, lumbar region; M19.042 Primary osteoarthritis, left hand; M19.041 Primary osteoarthritis, right hand; M19.072 Primary osteoarthritis, left ankle and foot; M19.071 Primary osteoarthritis, right ankle and foot; G89.29 Other chronic pain
CPT/HCPCS: 71046; 72100; 72202; 73130; 73630

== ENCOUNTER 2023-09-25 07:53 | Outpatient (CLI) | payer BC, SELFPAY ==
--- NOTE | ~2023-09-25 | US_ITS ---
COMPLETE ABDOMINAL ULTRASOUND Ordering provider: Adrianne Burgos MD History: . Constipation,abd pain . Comparison: None. FINDINGS: LIVER: Normal size and echotexture. No focal hepatic lesions or perihepatic fluid collections are jose angel ntified. Portal vein flow is normal. GALLBLADDER: Unremarkable. No evidence for stones, sludge, gallbladder wall thickening or pericholecy stic fluid collections. A negative sonographic Bush's sign was noted. BILIARY DUCTS: No evidence for intra or extrahepatic biliary dilation. Common bile duct measures 5 mm in diameter which is within normal limits. PANCREAS: Normal echotexture and size. KIDNEYS: Right measures 9.8 cm in length.. There is no evidence for hydronephrosis, solid renal mass, renal calculi or perinephric fluid collections. No renal cysts. UPPER ABDOMINAL AORTA: Normal in caliber. IVC: Patent. FREE FLUID: None. IMPRESSION: Unremarkable right upper quadrant ultrasound of the abdomen. Reviewed, dictated and finalized at location A.
== END 2023-09-25 07:54 ==
PROVIDERS: PCP Family Medicine; Visit Provider Family Medicine
DX: R10.9 Unspecified abdominal pain (principal); K59.00 Constipation, unspecified; R14.0 Abdominal distension (gaseous); L29.0 Pruritus ani
CPT/HCPCS: 76705

== ENCOUNTER 2023-10-02 09:29 | Outpatient (CLI) | payer BC, SELFPAY ==
--- NOTE | ~2023-10-02 | XR_ITS ---
XR abdomen/kub 1V Ordering provider: Adrianne Burgos MD History: . constipation, bloating for a couple months . Comparison: None. FINDINGS: BOWEL: Fecal material is loaded in the colon. Nonobstructive bowel gas pattern. ORGANOMEGALY: None. SIGNIFICANT PATHOLOGIC CALCIFICATIONS: None. OTHER: No free air is seen under the diaphragm. IMPRESSION: NO ACUTE ABDOMINAL FINDINGS. Constipation. Reviewed, dictated and finalized at location A.
== END 2023-10-02 09:30 ==
PROVIDERS: PCP Family Medicine; Visit Provider Family Medicine
DX: R10.9 Unspecified abdominal pain (principal); K59.00 Constipation, unspecified
CPT/HCPCS: 74018

== ENCOUNTER 2024-05-30 12:31 | Outpatient (CLI) | payer BC, SELFPAY ==
--- NOTE | ~2024-05-30 | MM_ITS ---
EXAMINATION: MM screening juan carlos BI w serg HISTORY: Screening TECHNIQUE: Craniocaudal and mediolateral oblique 3-D tomosynthesis images were obtained and synthetic 2-D images were generated. CAD analysis was submitted and interpreted. COMPARISON: Comparison to multiple prior studies sequentially, with oldest reviewed study dated 06/28. BREAST PARENCHYMAL COMPOSITION: Not dense: There are scattered areas of fibroglandular density. FINDINGS: There is no evidence of suspicious mass, calcification, or architectural distortion to sugg est malignancy in either breast. There has been no suspicious interval change. IMPRESSION: 1. No mammographic evidence of malignancy. 2. Recommend routine screening mammography in one year. BI-RADS Category 1: Negative Reviewed, dictated and finalized at location B.
== END 2024-05-30 12:32 | disposition home or self-care (01) ==
PROVIDERS: PCP Family Medicine; Visit Provider Advanced Practice Midwife
DX: Z12.31 Encounter for screening mammogram for malignant neoplasm of breast (principal)
CPT/HCPCS: 77063; 77067